=== PATIENT | male | born 1960 | race Caucasian/White ===

== ENCOUNTER → 2024-01-16 | Day surgery (SDC) | payer OTHER ==
[~2024-01-16] MED LIST: KETAMINE HCL IN 0.9 % NACL 50 MG/5 ML SYRINGE ONE; MIDAZOLAM 2 MG/2 ML VIAL ONE; ONDANSETRON 4 MG/2 ML VIAL ONE; PROPOFOL 10 MG/ML 20 ML VIAL IV ONE; Pre Op ABX Message 1 EACH MISC MISCELLANE ONE; ceFAZolin 1 GM/50 ML BAG (PMX) ONE; fentaNYL (PF) 50 MCG/ML 2 ML AMP ONE
[2024-01-16] MEDS: LACTATED RINGERS 1,000 ML IV ONE ×2 (12:08→13:05)
[2024-01-16] MEDS: ONDANSETRON 4 MG/2 ML VIAL IVP ONE (12:10)
[2024-01-16] MEDS: LIDOCAINE 2% INJ 20 MG/ML SQ ONE (12:39)
[2024-01-16 12:43] VITALS: TEMP 96.6
[2024-01-16] MEDS: SODIUM CHLORIDE 0.9% 100 ML with ceFAZolin 2,000 MG IV ONE (13:30)
[2024-01-16 14:17] VITALS: RESP 14
[2024-01-16 15:03] VITALS: BP 168/90; PULSE 53
--- NOTE | 2024-01-16 15:33 | P.OP ---
Date of Procedure: 01/16/24 Preoperative Diagnosis: Left small finger dupuytren's contracture Postoperative Diagnosis: same Procedure(s) Performed: Left small finger dupuytren's excision, past PIP joint Anesthesia: MAC, local Surgeon: Calista Martinez Estimated Blood Loss (ml): 3 Pathology: none sent Condition: stable Disposition: PACU Indications for Procedure: Alexy has had a contracture to his small finger for quite some time. The small finger MPJ has 30 degree contracture and the PIP has a 60 degree contracture. This is getting in the way of putting on gloves and activities. He would like the cord excised. Operative Findings: Pretendinous cord extending past PIP joint Description of Procedure: The patient, operative extremity, and procedure were identified in the preoperative holding area. After informed consent was obtained, the patient was then brought back to the operating room where a local block was performed with lidocaine plain. The extremity was then prepped and draped in normal sterile fashion with a tourniquet on the patients brachium. A formal timeout was performed and the tourniquet was inflated to 250mmHg. A longitudinal incision was made over the pretendinous cord of the small finger. Dissection was carried down to the cord itself and the Dupuytren's tissue was carefully dissected away from the surrounding tissue. Starting proximally, the cord was excised away from the palmar aponeurosis. Continuing distally, the n eurovascular bundles were identified and protected while the Dupuytren's tissue was removed from around the flexor tendon sheath. The chord extended distally to attach to the flexor tendon sheath distal to the PIP joint. Once the dupuytren's tissue was removed, the finger was able to achieve hyperextension at the MPJ and full extension at the PIP joint. Tourniquet was let down and hemostasis was achieved. Capillary refill was brisk in the fingertips. Wounds were closed with 4.0 nylon suture. Wound was dressed with antibiotic ointment, adaptic, gauze, cast padding, and a splint was applied to support the fingers in full extension. Capillary refill remained brisk in all fingertips. Patient was aroused by the anesthesia team and brought back to PACU in stable condition.
== END | disposition home or self-care (01) ==
LOC: OR 11:37
PROVIDERS: ATTEND Orthopaedic Surgery Hand Surgery
DX: M72.0 Palmar fascial fibromatosis [Dupuytren] (principal); I10 Essential (primary) hypertension; Z87.891 Personal history of nicotine dependence; Z79.899 Other long term (current) drug therapy; Z88.0 Allergy status to penicillin
CPT/HCPCS: 26123; J2001; J2250; J2405; J0690 ×2; J3010; J2704